=== PATIENT | female | born 1960 | race African-American/Black ===

== ENCOUNTER 2022-10-27 22:49 | Inpatient (IN) | payer OTHER, MEDICAID ==
[~2022-10-27] VITALS: Ht 172.7 cm; Wt 60.5 kg
[2022-10-27] MEDS ORDERED: SODIUM CHLORIDE 0.9% 1000ML BAG (SEPSIS BOLUS) IV ONE (23:15)
[2022-10-28] MEDS ORDERED: CEFTRIAXONE 1GM PREMIX 50 ML IV ONE (00:15)
[2022-10-28] MEDS ORDERED: AZITHROMYCIN 500MG/250ML 250 ML IV ONE (00:15)
[2022-10-28 01:09] LABS: CLARITY URINE CLEAR (CLEAR); COLOR URINE DARK YELLOW (YELLOW); GLUCOSE URINE NEGATIVE (NEGATIVE); KETONES URINE TRACE (NEGATIVE); LEUKOCYTE ESTERASE URINE 2+ (NEGATIVE); NITRITE URINE NEGATIVE (NEGATIVE); OCCULT BLOOD URINE 1+ (NEGATIVE); PH URINE 5.5 (4.5-8.0); PROTEIN URINE 2+ (NEGATIVE); SPECIFIC GRAVITY URINE 1.034 (1.005-1.030)
[2022-10-28 01:28] LABS: BACTERIA URINE 1+; SQUAMOUS EPITHELIAL CELL URINE 1+ /lpf (RARE/1+)
[2022-10-28] MEDS ORDERED: AZITHROMYCIN 500MG/250ML 250 ML IV NR (03:00)
[2022-10-28] MEDS ORDERED: CEFTRIAXONE 1GM PREMIX 50 ML IV NR (03:00)
[2022-10-28 03:13] LABS: HEMATOCRIT. 36.2 % (36.0-48.0); HEMOGLOBIN. 12.4 g/dL (12.0-16.0); MEAN CORPUSCULAR HEMOGLOBIN 28.4 pg (28.0-32.0); MEAN CORPUSCULAR HGB CONC 34.2 g/dL (31.0-37.0); MEAN PLATELET VOLUME 7.9 fl (7.4-10.4); PLATELET 358 x1000/uL (130-400); RED BLOOD CELL COUNT 4.36 mill/uL (4.2-5.4); RED CELL DISTRIBUTION WIDTH 13.7 % (11.6-14.6)
[2022-10-28 03:18] LABS: CHLORIDE 111 mEq/L (98-107); INDEX HEMOLYSI 1 (1-3); INDEX ICTERIC 1 (1-4); INDEX LIPEMIC 1 (1-3); POTASSIUM 3.9 mEq/L (3.5-5.1); SODIUM 142 mEq/L (136-145)
[2022-10-28 03:20] LABS: PROTHROMBIN TIME 11.1 sec (9.6-11.0)
[2022-10-28 03:22] LABS: DIFFERENTIAL COMMENT 1
[2022-10-28 03:27] LABS: ALANINE AMINOTRANSFERASE 45 IU/L (13-61); ALBUMIN 2.5 g/dL (3.4-5.0); ASPARTATE AMINOTRANSFERASE 116 IU/L (15-37); BILIRUBIN TOTAL 0.5 mg/dL (0.1-1.0); CALCIUM 9.7 mg/dL (8.5-10.1); CARBON DIOXIDE 27 mEq/L (21-32); CREATININE 0.9 mg/dL (0.6-1.3); GLUCOSE 114 mg/dL (70-105); LACTATE DEHYDROGENASE 355 IU/L (100-240); NT PRO B-TYPE NATRIURETIC PEP 988 pg/mL (5-125); PROTEIN TOTAL 7.4 g/dL (6.0-8.3); UREA NITROGEN BLOOD 37 mg/dL (7-21)
[2022-10-28 03:49] LABS: PLATELET ESTIMATE NORMAL
[2022-10-28 04:28] LABS: LACTIC ACID 2.9 mmol/L (0.4-2.0); TROPONIN I HIGH SENSITIVITY 189 ng/L (<54)
[2022-10-28 11:20] VITALS: BP 100/46; PULSE 49; RESP 18; TEMP 99
[2022-10-28 11:30] VITALS: BP 100/46; PULSE 83; RESP 18; TEMP 99
[2022-10-28] MEDS ORDERED: CLONIDINE 0.1MG TABLET PO PRN (13:15)
[2022-10-28] MEDS ORDERED: HYDROCODONE/ACETAMINOPHEN 5/325MG TABLET PO PRN (13:15)
[2022-10-28] MEDS ORDERED: DOCUSATE SODIUM 100MG CAPSULE PO PRN (13:15)
[2022-10-28] MEDS ORDERED: ONDANSETRON HCL 4MG/2ML INJ IV PRN (13:15)
[2022-10-28] MEDS ORDERED: ACETAMINOPHEN 325MG TABLET PO PRN (13:15)
[2022-10-28] MEDS ORDERED: IPRATROPIUM/ALBUTEROL 0.5-3(2.5)MG/3ML NEB HHN PRN (13:15)
[2022-10-28] MEDS ORDERED: NALOXONE HCL 0.4MG/ML VIAL IV PRN (13:30)
[2022-10-28 14:00] VITALS: BP 94/51; PULSE 71; RESP 19; TEMP 98.5
[2022-10-28 16:00] VITALS: BP 95/55; PULSE 78; RESP 19; TEMP 98.6
[2022-10-28 18:27] LABS: TROPONIN I HIGH SENSITIVITY 171 ng/L (<54)
[2022-10-28 20:00] VITALS: BP 104/61; PULSE 68; RESP 18; TEMP 97.3
[2022-10-28 20:12] LABS: BG BASE EXCESS 3.8 mmol/L (-2.0-2.0); BG CARBOXYHEMOGLOBIN 0.3 % (0.5-1.5); BG DEOXYHEMOGLOBIN 1.9 % (0.0-5.0); BG FRACTION INSPIRED OXYGEN 28; BG HCO3 ACT 27.5 mmol/L (22.0-26.0); BG METHEMOGLOBIN 0.3 % (0.0-1.5); BG OXYGEN SATURATION 98.1 % (92.0-98.5); BG OXYHEMOGLOBIN 97.5 % (94.0-97.0); BG PCO2 37.8 mmHg (35.0-45.0); BG PH 7.479 (7.350-7.450); BG PO2 137.9 mmHg (75.0-100.0); BG SAMPLE SITE RIGHT BRACHIAL; BG TOTAL HEMOGLOBIN 11.1 g/dL (12.0-18.0); BG VENT MODE NASAL CANNULA
[2022-10-28] MEDS: DEXT 5%/0.9% NACL 1,000 ML IV SCH (21:51)
[2022-10-28] MEDS: CEFTRIAXONE 1,000 MG in DEXTROSE 5% WATER 50 ML IV SCH (21:52)
[2022-10-28 22:27] LABS: TROPONIN I HIGH SENSITIVITY 164 ng/L (<54)
[2022-10-28 23:14] LABS: PHOSPHORUS 3.3 mg/dL (2.5-4.9); THYROID STIMULATING HORMONE 1.6 uIU/mL (0.36-3.74)
[2022-10-29] VITALS: BP 110/51; PULSE 79; RESP 19; TEMP 98
[2022-10-29 04:00] VITALS: BP 97/62; PULSE 73; RESP 19; TEMP 96.9
[2022-10-29 07:32] LABS: CHLORIDE 115 mEq/L (98-107); INDEX HEMOLYSI 1 (1-3); INDEX ICTERIC 1 (1-4); INDEX LIPEMIC 1 (1-3); POTASSIUM 3.6 mEq/L (3.5-5.1); SODIUM 143 mEq/L (136-145)
[2022-10-29 07:45] LABS: ALANINE AMINOTRANSFERASE 39 IU/L (13-61); ASPARTATE AMINOTRANSFERASE 78 IU/L (15-37); BILIRUBIN DIRECT 0.1 mg/dL (0.0-0.2); BILIRUBIN TOTAL 0.4 mg/dL (0.1-1.0); CALCIUM 9.5 mg/dL (8.5-10.1); CARBON DIOXIDE 24 mEq/L (21-32); CREATININE 0.7 mg/dL (0.6-1.3); GLUCOSE 97 mg/dL (70-105); PROTEIN TOTAL 6.4 g/dL (6.0-8.3); UREA NITROGEN BLOOD 32 mg/dL (7-21)
[2022-10-29 08:16] LABS: BASOPHILS % 0.1 % (0.0-2.0); EOSINOPHILS % 0.5 % (0.0-5.0); HEMATOCRIT. 30.3 % (36.0-48.0); LYMPHOCYTES % 9.1 % (20.0-50.0); MEAN CORPUSCULAR HEMOGLOBIN 28.7 pg (28.0-32.0); MEAN CORPUSCULAR HGB CONC 34.5 g/dL (31.0-37.0); MEAN CORPUSCULAR VOLUME 83.2 fL (81.0-99.0); MEAN PLATELET VOLUME 8.2 fl (7.4-10.4); MONOCYTES % 3.5 % (2.0-8.0); NEUTROPHILS % 86.8 % (40.0-76.0); PLATELET 314 x1000/uL (130-400); RED BLOOD CELL COUNT 3.64 mill/uL (4.2-5.4); RED CELL DISTRIBUTION WIDTH 13.7 % (11.6-14.6); WHITE BLOOD COUNT 13.9 x1000/uL (4.5-11.0)
[2022-10-29 08:20] VITALS: BP 104/62; PULSE 71; RESP 20; TEMP 98.3
[2022-10-29 08:32] LABS: HEMOGLOBIN. 10.4 g/dL (12.0-16.0)
[2022-10-29 09:02] LABS: *AMPHETAMINES SCREEN URINE NEGATIVE (NEGATIVE); *BARBITURATES SCREEN URINE NEGATIVE (NEGATIVE); *BENZODIAZEPINES SCREEN URINE NEGATIVE (NEGATIVE); *COCAINE SCREEN URINE NEGATIVE (NEGATIVE); CANNABINOID URINE SCREEN NEGATIVE (NEGATIVE); ECSTASY MDMA SCREEN URINE NEGATIVE (NEGATIVE); METHADONE URINE SCREEN NEGATIVE (NEGATIVE); OPIATES URINE SCREEN NEGATIVE (NEGATIVE); PHENCYCLIDINE URINE SCREEN NEGATIVE (NEGATIVE)
[2022-10-29] MEDS ORDERED: LIDOCAINE 2%/EPINEPHRINE 1:200,000 20 ML VIAL INJ NR (11:00)
[2022-10-29 11:42] VITALS: BP 104/69; PULSE 85; RESP 20; TEMP 97.9
[2022-10-29] MEDS ORDERED: PERMETHRIN 5% CREAM 60GM TOP NR (12:30)
[2022-10-29] MEDS ORDERED: VANCOMYCIN 1G PREMIX 200 ML IV NR (13:30)
[2022-10-29] MEDS: DEXT 5%/0.9% NACL 1,000 ML IV SCH (14:16)
[2022-10-29 16:19] VITALS: BP 113/72; PULSE 71; RESP 20; TEMP 98.3
[2022-10-29 20:00] VITALS: BP 103/57; PULSE 79; RESP 18; TEMP 99
[2022-10-29] MEDS: CEFTRIAXONE 1,000 MG in DEXTROSE 5% WATER 50 ML IV SCH (21:47)
[2022-10-30] VITALS: BP 96/47; PULSE 66; RESP 18; TEMP 98.4
[2022-10-30 04:00] VITALS: BP 107/51; PULSE 72; RESP 18; TEMP 98.2
[2022-10-30 06:56] LABS: BASOPHILS % 0.2 % (0.0-2.0); EOSINOPHILS % 0.9 % (0.0-5.0); HEMATOCRIT. 28.5 % (36.0-48.0); LYMPHOCYTES % 11.8 % (20.0-50.0); MEAN CORPUSCULAR HEMOGLOBIN 29.3 pg (28.0-32.0); MEAN CORPUSCULAR HGB CONC 35.3 g/dL (31.0-37.0); MEAN CORPUSCULAR VOLUME 83.1 fL (81.0-99.0); MEAN PLATELET VOLUME 8.2 fl (7.4-10.4); MONOCYTES % 4.3 % (2.0-8.0); NEUTROPHILS % 82.8 % (40.0-76.0); PLATELET 281 x1000/uL (130-400); RED BLOOD CELL COUNT 3.43 mill/uL (4.2-5.4); RED CELL DISTRIBUTION WIDTH 13.6 % (11.6-14.6); WHITE BLOOD COUNT 10.1 x1000/uL (4.5-11.0)
[2022-10-30 07:01] LABS: CHLORIDE 115 mEq/L (98-107); INDEX HEMOLYSI 1 (1-3); INDEX ICTERIC 1 (1-4); INDEX LIPEMIC 1 (1-3); POTASSIUM 3.9 mEq/L (3.5-5.1); SODIUM 145 mEq/L (136-145)
[2022-10-30 07:13] LABS: ALBUMIN 1.9 g/dL (3.4-5.0); CALCIUM 9.2 mg/dL (8.5-10.1); CARBON DIOXIDE 28 mEq/L (21-32); CREATININE 0.8 mg/dL (0.6-1.3); GLUCOSE 106 mg/dL (70-105); PREALBUMIN 7.6 mg/dL (20.0-40.0); UREA NITROGEN BLOOD 25 mg/dL (7-21)
[2022-10-30 08:01] VITALS: BP 91/52; PULSE 69; RESP 20; TEMP 97.4
[2022-10-30] MEDS: DEXT 5%/0.9% NACL 1,000 ML IV SCH (08:25)
[2022-10-30] MEDS: SODIUM HYPOCHLORITE 0.125% 473ML SOLUTION TOP SCH ×2 (11:18→17:20)
[2022-10-30 12:04] VITALS: BP 97/54; PULSE 77; RESP 18; TEMP 98
[2022-10-30] MEDS: VANCOMYCIN 750MG PREMIX 150 ML IV SCH ×2 (12:30)
[2022-10-30 15:42] VITALS: BP 114/71; PULSE 86; RESP 20; TEMP 97.5
[2022-10-30 20:00] VITALS: BP 113/66; PULSE 84; RESP 18; TEMP 99.1
[2022-10-30] MEDS: CEFTRIAXONE 1,000 MG in DEXTROSE 5% WATER 50 ML IV SCH (20:50)
[2022-10-31] VITALS: BP 123/84; PULSE 83; RESP 18; TEMP 98.4
[2022-10-31] MEDS: VANCOMYCIN 750MG PREMIX 150 ML IV SCH ×2 (01:44→12:18)
[2022-10-31 04:00] VITALS: BP 105/59; PULSE 71; RESP 18; TEMP 98.5
[2022-10-31 08:00] VITALS: BP 97/61; PULSE 72; RESP 17; TEMP 97.5
[2022-10-31 11:11] LABS: BASOPHILS % 0.5 % (0.0-2.0); EOSINOPHILS % 1.9 % (0.0-5.0); HEMOGLOBIN. 9.8 g/dL (12.0-16.0); LYMPHOCYTES % 19.5 % (20.0-50.0); MEAN CORPUSCULAR HEMOGLOBIN 29.2 pg (28.0-32.0); MEAN CORPUSCULAR VOLUME 83.4 fL (81.0-99.0); MEAN PLATELET VOLUME 7.9 fl (7.4-10.4); MONOCYTES % 3.9 % (2.0-8.0); NEUTROPHILS % 74.2 % (40.0-76.0); PLATELET 270 x1000/uL (130-400); RED BLOOD CELL COUNT 3.35 mill/uL (4.2-5.4); RED CELL DISTRIBUTION WIDTH 13.5 % (11.6-14.6); WHITE BLOOD COUNT 6.9 x1000/uL (4.5-11.0)
[2022-10-31 12:00] VITALS: BP 108/53; PULSE 79; RESP 17; TEMP 98
[2022-10-31 12:09] LABS: CHLORIDE 111 mEq/L (98-107); INDEX HEMOLYSI 2 (1-3); INDEX ICTERIC 1 (1-4); INDEX LIPEMIC 1 (1-3); POTASSIUM 3.7 mEq/L (3.5-5.1); SODIUM 141 mEq/L (136-145)
[2022-10-31 12:16] LABS: CALCIUM 8.5 mg/dL (8.5-10.1); CARBON DIOXIDE 26 mEq/L (21-32); CREATININE 0.5 mg/dL (0.6-1.3); GLUCOSE 146 mg/dL (70-105); UREA NITROGEN BLOOD 20 mg/dL (7-21)
[2022-10-31] MEDS: SODIUM HYPOCHLORITE 0.125% 473ML SOLUTION TOP SCH ×2 (12:18→17:12)
[2022-10-31 16:00] VITALS: BP 100/66; PULSE 76; RESP 17; TEMP 97.6
[2022-10-31 20:00] VITALS: BP 139/84; PULSE 89; RESP 18; TEMP 98.4
[2022-10-31] MEDS: CEFTRIAXONE 1,000 MG in DEXTROSE 5% WATER 50 ML IV SCH (21:25)
[2022-11-01] VITALS: BP 106/66; PULSE 80; RESP 16; TEMP 98
[2022-11-01 04:00] VITALS: BP_SYST 126; BP_SYST 131; BP_DIAS 76; BP_DIAS 97; PULSE 58; PULSE 75; RESP 17; RESP 19; TEMP 97.3; TEMP 97.9
[2022-11-01] MEDS: DEXT 5%/0.9% NACL 1,000 ML IV SCH (04:55)
[2022-11-01 08:00] VITALS: BP 110/66; PULSE 63; RESP 16; TEMP 97.4
[2022-11-01] MEDS: SODIUM HYPOCHLORITE 0.125% 473ML SOLUTION TOP SCH ×2 (09:43→16:51)
[2022-11-01 12:00] VITALS: BP 122/63; PULSE 66; RESP 17; TEMP 97
[2022-11-01 16:00] VITALS: BP 124/74; PULSE 65; RESP 18; TEMP 97.4
[2022-11-01] MEDS: ACETAMINOPHEN 325MG TABLET PO PRN (16:57)
[2022-11-01 20:00] VITALS: BP 104/77; PULSE 84; RESP 17; TEMP 98.1
[2022-11-01] MEDS: CEFTRIAXONE 1,000 MG in DEXTROSE 5% WATER 50 ML IV SCH (21:37)
[2022-11-02] VITALS: BP 106/65; PULSE 73; RESP 17; TEMP 98.8
[2022-11-02 04:00] VITALS: BP_SYST 125; BP_DIAS 64; BP_DIAS 65; PULSE 66; RESP 18; TEMP 97.1
[2022-11-02 08:00] VITALS: BP 104/89; PULSE 68; RESP 18; TEMP 96.2
[2022-11-02] MEDS: DONEPEZIL HCL 5MG TABLET PO SCH (08:31)
[2022-11-02] MEDS: SODIUM HYPOCHLORITE 0.125% 473ML SOLUTION TOP SCH ×2 (08:31→17:00)
[2022-11-02] MEDS: DEXT 5%/0.9% NACL 1,000 ML IV SCH (10:05)
[2022-11-02 12:00] VITALS: BP 105/64; PULSE 72; RESP 18; TEMP 97.6
[2022-11-02 16:00] VITALS: BP 113/82; PULSE 82; RESP 18; TEMP 96.4
[2022-11-02 20:00] VITALS: BP 102/70; PULSE 95; RESP 18; TEMP 97.6
[2022-11-02] MEDS: CARVEDILOL 3.125 MG TABLET PO SCH (21:00)
[2022-11-02] MEDS: CEFTRIAXONE 1,000 MG in DEXTROSE 5% WATER 50 ML IV SCH (21:55)
[2022-11-03] VITALS: BP 120/80; PULSE 83; RESP 19; TEMP 99.2
[2022-11-03 04:00] VITALS: BP 103/55; PULSE 72; RESP 19; TEMP 97.9
[2022-11-03 07:17] LABS: CHLORIDE 106 mEq/L (98-107); INDEX HEMOLYSI 1 (1-3); INDEX ICTERIC 1 (1-4); INDEX LIPEMIC 1 (1-3); SODIUM 138 mEq/L (136-145)
[2022-11-03 07:22] LABS: CALCIUM 8.7 mg/dL (8.5-10.1); CARBON DIOXIDE 28 mEq/L (21-32); CREATININE 0.7 mg/dL (0.6-1.3); GLUCOSE 90 mg/dL (70-105); UREA NITROGEN BLOOD 13 mg/dL (7-21)
[2022-11-03 07:24] LABS: BASOPHILS % 0.6 % (0.0-2.0); EOSINOPHILS % 1.7 % (0.0-5.0); HEMATOCRIT. 27.8 % (36.0-48.0); HEMOGLOBIN. 9.9 g/dL (12.0-16.0); LYMPHOCYTES % 20.3 % (20.0-50.0); MEAN CORPUSCULAR HEMOGLOBIN 29.1 pg (28.0-32.0); MEAN CORPUSCULAR HGB CONC 35.5 g/dL (31.0-37.0); MEAN CORPUSCULAR VOLUME 82.1 fL (81.0-99.0); MEAN PLATELET VOLUME 7.6 fl (7.4-10.4); MONOCYTES % 6.9 % (2.0-8.0); NEUTROPHILS % 70.5 % (40.0-76.0); PLATELET 296 x1000/uL (130-400); RED BLOOD CELL COUNT 3.39 mill/uL (4.2-5.4); RED CELL DISTRIBUTION WIDTH 13.5 % (11.6-14.6); WHITE BLOOD COUNT 6.8 x1000/uL (4.5-11.0)
[2022-11-03 08:06] VITALS: BP 108/69; PULSE 76; RESP 20; TEMP 97.7
[2022-11-03] MEDS: CARVEDILOL 3.125 MG TABLET PO SCH ×2 (08:28→21:00)
[2022-11-03] MEDS: LOSARTAN POTASSIUM 25 MG TABLET PO SCH (08:28)
[2022-11-03] MEDS: SODIUM HYPOCHLORITE 0.125% 473ML SOLUTION TOP SCH ×2 (08:29→16:08)
[2022-11-03] MEDS: DONEPEZIL HCL 5MG TABLET PO SCH (08:29)
[2022-11-03 11:58] VITALS: BP 95/58; PULSE 77; RESP 18; TEMP 97.9
[2022-11-03 16:35] VITALS: BP 93/53; PULSE 75; RESP 20; TEMP 98
[2022-11-03 20:00] VITALS: BP 103/65; PULSE 84; RESP 16; TEMP 98.2
[2022-11-03] MEDS: CEFTRIAXONE 1,000 MG in DEXTROSE 5% WATER 50 ML IV SCH (21:50)
[2022-11-04] VITALS: BP 97/67; PULSE 86; RESP 18; TEMP 98.3
[2022-11-04 04:00] VITALS: BP 117/87; PULSE 94; TEMP 98.2
[2022-11-04 08:00] VITALS: BP 111/58; PULSE 74; RESP 16; TEMP 97.5
[2022-11-04] MEDS: SODIUM HYPOCHLORITE 0.125% 473ML SOLUTION TOP SCH ×2 (09:00→18:04)
[2022-11-04] MEDS: LOSARTAN POTASSIUM 25 MG TABLET PO SCH (10:30)
[2022-11-04] MEDS: DONEPEZIL HCL 5MG TABLET PO SCH (10:30)
[2022-11-04] MEDS: CARVEDILOL 3.125 MG TABLET PO SCH ×2 (10:30→21:17)
[2022-11-04 12:00] VITALS: BP 92/57; PULSE 81; RESP 18; TEMP 97.5
[2022-11-04 16:00] VITALS: BP 94/56; PULSE 87; RESP 18; TEMP 97.7
[2022-11-04 20:00] VITALS: BP 89/54; PULSE 96; RESP 20; TEMP 97.9
[2022-11-05] VITALS: BP 95/64; PULSE 78; RESP 20; TEMP 98.1
[2022-11-05 04:00] VITALS: BP 86/50; PULSE 76; RESP 19; TEMP 97.5
[2022-11-05 08:00] VITALS: BP 116/62; PULSE 73; RESP 18; TEMP 97.6
[2022-11-05] MEDS ORDERED: CEFTRIAXONE 1GM PREMIX 50 ML IV SCH (09:00)
[2022-11-05] MEDS: SODIUM HYPOCHLORITE 0.125% 473ML SOLUTION TOP SCH ×2 (09:44→17:22)
[2022-11-05] MEDS: DONEPEZIL HCL 5MG TABLET PO SCH (09:44)
[2022-11-05] MEDS: CEFTRIAXONE 1,000 MG in DEXTROSE 5% WATER 50 ML IV SCH (09:49)
[2022-11-05 12:00] VITALS: BP 94/56; PULSE 83; RESP 16; TEMP 97.5
[2022-11-05 16:00] VITALS: BP 90/55; PULSE 86; RESP 16; TEMP 97.6
[2022-11-05 20:15] VITALS: BP 93/48; PULSE 104; RESP 20; TEMP 99
[2022-11-05] MEDS ORDERED: DONE10TA43 MT (21:43)
[2022-11-05] MEDS ORDERED: HYDR12.54 MT (21:43)
[2022-11-05] MEDS ORDERED: CHOL400D7 PO (21:43)
[2022-11-06 00:30] VITALS: BP 94/56; PULSE 89; RESP 20; TEMP 98.1
[2022-11-06 04:27] VITALS: BP 98/60; PULSE 90; RESP 20; TEMP 97.5
[2022-11-06 08:00] VITALS: BP 108/69; PULSE 98; RESP 18; TEMP 98
[2022-11-06] MEDS: SODIUM HYPOCHLORITE 0.125% 473ML SOLUTION TOP SCH ×2 (09:09→18:00)
[2022-11-06] MEDS: DONEPEZIL HCL 5MG TABLET PO SCH (09:09)
[2022-11-06] MEDS: CEFTRIAXONE 1,000 MG in DEXTROSE 5% WATER 50 ML IV SCH (10:15)
[2022-11-06 12:00] VITALS: BP 110/72; PULSE 87; RESP 18; TEMP 97.7
[2022-11-06 16:00] VITALS: BP 115/68; PULSE 75; RESP 18; TEMP 97.8
[2022-11-06 20:00] VITALS: BP 99/74; PULSE 87; RESP 20; TEMP 100.2
[2022-11-07] VITALS: BP 103/72; PULSE 86; RESP 19; TEMP 97.5
[2022-11-07 04:10] VITALS: BP 110/60; PULSE 88; RESP 20; TEMP 99.4
[2022-11-07 08:00] VITALS: BP 113/57; PULSE 79; RESP 20; TEMP 97.8
[2022-11-07] MEDS: CEFTRIAXONE 1,000 MG in DEXTROSE 5% WATER 50 ML IV SCH (10:17)
[2022-11-07] MEDS: DONEPEZIL HCL 5MG TABLET PO SCH (10:17)
[2022-11-07] MEDS: SODIUM HYPOCHLORITE 0.125% 473ML SOLUTION TOP SCH ×2 (10:18→17:50)
[2022-11-07 12:00] VITALS: BP 122/87; PULSE 105; RESP 20; TEMP 98.8
[2022-11-07 16:00] VITALS: BP 136/85; PULSE 109; RESP 18; TEMP 98
[2022-11-07 20:00] VITALS: BP 132/79; PULSE 79; RESP 20; TEMP 98.6
[2022-11-08] VITALS: BP 126/85; PULSE 115; RESP 20; TEMP 98
[2022-11-08 04:00] VITALS: BP 121/82; PULSE 114; RESP 21; TEMP 98.6
[2022-11-08 08:00] VITALS: BP 117/76; PULSE 102; RESP 18; TEMP 98.9
[2022-11-08] MEDS: SODIUM HYPOCHLORITE 0.125% 473ML SOLUTION TOP SCH ×2 (09:25→17:00)
[2022-11-08] MEDS: DONEPEZIL HCL 5MG TABLET PO SCH (09:25)
[2022-11-08] MEDS: CEFTRIAXONE 1,000 MG in DEXTROSE 5% WATER 50 ML IV SCH (09:53)
[2022-11-08 12:00] VITALS: BP 107/70; PULSE 98; RESP 20; TEMP 97.7
[2022-11-08 16:00] VITALS: BP 110/57; PULSE 96; RESP 18; TEMP 98
[2022-11-08 20:00] VITALS: BP 100/62; PULSE 104; RESP 18; TEMP 100.3
[2022-11-09] VITALS (17 sets, daily range): BP systolic 73–108; BP diastolic 39–69; PULSE 42–93; RESP 15–20; TEMP 97.7–98.9
[2022-11-09] MEDS ORDERED: SODIUM CHLORIDE 0.9% 500 ML IV NR ×2 (02:45)
[2022-11-09] MEDS: MIDODRINE HCL 5MG TABLET PO SCH ×4 (03:10→18:05)
[2022-11-09] MEDS: DONEPEZIL HCL 5MG TABLET PO SCH (09:00)
[2022-11-09] MEDS ORDERED: NOREPINEPHRINE 32 MG in DEXT 5% WATER 218 ML IV PRN (10:15)
[2022-11-09] MEDS: SODIUM CHLORIDE 0.9% 1,000 ML IV SCH ×2 (10:29→21:34)
[2022-11-09] MEDS: SODIUM HYPOCHLORITE 0.125% 473ML SOLUTION TOP SCH ×2 (10:30→18:06)
[2022-11-09 12:52] LABS: HEMATOCRIT 27.2 % (36.0-48.0); HEMOGLOBIN 9.9 g/dL (12.0-16.0); MEAN CORPUSCULAR HEMOGLOBIN 30.4 pg (28.0-32.0); MEAN CORPUSCULAR HGB CONC 36.5 g/dL (31.0-37.0); MEAN CORPUSCULAR VOLUME 83.4 fL (81.0-99.0); PLATELET 429 x1000/uL (130-400); RED BLOOD CELL COUNT 3.26 mill/uL (4.2-5.4); WHITE BLOOD COUNT 8.2 x1000/uL (4.5-11.0)
[2022-11-09 13:05] LABS: CHLORIDE 106 mEq/L (98-107); INDEX HEMOLYSI 1 (1-3); INDEX ICTERIC 1 (1-4); INDEX LIPEMIC 1 (1-3); POTASSIUM 4.5 mEq/L (3.5-5.1); SODIUM 137 mEq/L (136-145)
[2022-11-09 13:16] LABS: ALANINE AMINOTRANSFERASE 24 IU/L (13-61); ALBUMIN 1.9 g/dL (3.4-5.0); ASPARTATE AMINOTRANSFERASE 31 IU/L (15-37); BILIRUBIN TOTAL 0.2 mg/dL (0.1-1.0); CALCIUM 8.6 mg/dL (8.5-10.1); CARBON DIOXIDE 29 mEq/L (21-32); CREATININE 0.8 mg/dL (0.6-1.3); GLUCOSE 100 mg/dL (70-105); UREA NITROGEN BLOOD 18 mg/dL (7-21)
[2022-11-09 13:44] LABS: TROPONIN I HIGH SENSITIVITY 181 ng/L (<54)
[2022-11-10] VITALS: BP 98/58; PULSE 66; RESP 18; TEMP 97.5
[2022-11-10 04:00] VITALS: BP 97/46; PULSE 61; RESP 18; TEMP 98.2
[2022-11-10] MEDS: SODIUM CHLORIDE 0.9% 1,000 ML IV SCH ×2 (06:39→15:19)
[2022-11-10 07:36] LABS: EOSINOPHILS % 2.1 % (0.0-5.0); HEMATOCRIT. 27.3 % (36.0-48.0); HEMOGLOBIN. 9.5 g/dL (12.0-16.0); LYMPHOCYTES % 20.9 % (20.0-50.0); MEAN CORPUSCULAR HEMOGLOBIN 28.9 pg (28.0-32.0); MEAN CORPUSCULAR HGB CONC 34.8 g/dL (31.0-37.0); MEAN PLATELET VOLUME 6.9 fl (7.4-10.4); MONOCYTES % 6.2 % (2.0-8.0); NEUTROPHILS % 69.8 % (40.0-76.0); PLATELET 418 x1000/uL (130-400); RED CELL DISTRIBUTION WIDTH 14.2 % (11.6-14.6); WHITE BLOOD COUNT 6.8 x1000/uL (4.5-11.0)
[2022-11-10 07:52] LABS: CHLORIDE 106 mEq/L (98-107); INDEX HEMOLYSI 1 (1-3); INDEX ICTERIC 1 (1-4); INDEX LIPEMIC 1 (1-3); POTASSIUM 4.2 mEq/L (3.5-5.1); SODIUM 137 mEq/L (136-145)
[2022-11-10 08:08] LABS: CARBON DIOXIDE 27 mEq/L (21-32); CREATININE 0.6 mg/dL (0.6-1.3); GLUCOSE 83 mg/dL (70-105); NT PRO B-TYPE NATRIURETIC PEP 512 pg/mL (5-125); UREA NITROGEN BLOOD 17 mg/dL (7-21)
[2022-11-10] MEDS: DONEPEZIL HCL 5MG TABLET PO SCH (09:26)
[2022-11-10] MEDS: MIDODRINE HCL 5MG TABLET PO SCH ×3 (09:26→17:59)
[2022-11-10] MEDS: SODIUM HYPOCHLORITE 0.125% 473ML SOLUTION TOP SCH ×2 (09:26→17:58)
[2022-11-10] MEDS: CEFTRIAXONE 1,000 MG in DEXTROSE 5% WATER 50 ML IV SCH (10:44)
[2022-11-10 12:00] VITALS: BP_SYST 92; BP_SYST 97; BP_DIAS 49; BP_DIAS 53; PULSE 58; PULSE 62; RESP 20; TEMP 97.5; TEMP 98
[2022-11-10 16:00] VITALS: BP 97/67; PULSE 71; RESP 20; TEMP 99
[2022-11-10 20:00] VITALS: BP 123/78; PULSE 52; RESP 18; TEMP 98
[2022-11-11] VITALS: BP 143/81; PULSE 85; RESP 20; TEMP 98.4
[2022-11-11] MEDS: SODIUM CHLORIDE 0.9% 1,000 ML IV SCH ×3 (01:15→21:36)
[2022-11-11 04:00] VITALS: BP 97/53; PULSE 86; RESP 20; TEMP 98.6
[2022-11-11 08:00] VITALS: BP 118/64; PULSE 69; RESP 20; TEMP 98.4
[2022-11-11] MEDS: SODIUM HYPOCHLORITE 0.125% 473ML SOLUTION TOP SCH ×2 (08:56→17:51)
[2022-11-11] MEDS: DONEPEZIL HCL 5MG TABLET PO SCH (08:56)
[2022-11-11] MEDS: MIDODRINE HCL 5MG TABLET PO SCH ×3 (08:56→17:51)
[2022-11-11 12:00] VITALS: BP 135/75; PULSE 74; RESP 20; TEMP 97.2
[2022-11-11 16:00] VITALS: BP 117/67; PULSE 72; RESP 18; TEMP 97.4
[2022-11-11 20:42] VITALS: BP 96/56; PULSE 88; RESP 20; TEMP 100
[2022-11-12 00:09] VITALS: BP 111/66; PULSE 77; RESP 19; TEMP 98.8
[2022-11-12 04:00] VITALS: BP 106/54; PULSE 65; RESP 19; TEMP 98.6
[2022-11-12] MEDS: SODIUM CHLORIDE 0.9% 1,000 ML IV SCH (06:44)
[2022-11-12 08:13] VITALS: BP 98/48; PULSE 67; RESP 18; TEMP 97.9
[2022-11-12] MEDS: SODIUM HYPOCHLORITE 0.125% 473ML SOLUTION TOP SCH ×2 (09:20→17:17)
[2022-11-12] MEDS: MIDODRINE HCL 5MG TABLET PO SCH ×3 (09:21→17:16)
[2022-11-12] MEDS: DONEPEZIL HCL 5MG TABLET PO SCH (09:21)
[2022-11-12 12:22] VITALS: BP 111/69; PULSE 83; RESP 18; TEMP 98
[2022-11-12 16:20] VITALS: BP 112/65; PULSE 63; RESP 18; TEMP 97.9
[2022-11-12 20:00] VITALS: BP 121/73; PULSE 74; RESP 18; TEMP 99
[2022-11-13] VITALS: BP 114/63; PULSE 71; RESP 18; TEMP 98.6
[2022-11-13 04:00] VITALS: BP 117/75; PULSE 80; RESP 18; TEMP 98.8
[2022-11-13 08:00] VITALS: BP 121/66; PULSE 69; RESP 18; TEMP 97.6
[2022-11-13] MEDS: SODIUM HYPOCHLORITE 0.125% 473ML SOLUTION TOP SCH ×2 (09:00→17:00)
[2022-11-13] MEDS: MIDODRINE HCL 5MG TABLET PO SCH ×3 (09:00→17:00)
[2022-11-13] MEDS: DONEPEZIL HCL 5MG TABLET PO SCH (10:02)
[2022-11-13 12:00] VITALS: BP 112/65; PULSE 79; RESP 20; TEMP 97.7
[2022-11-13 15:59] VITALS: BP 139/87; PULSE 79; RESP 18; TEMP 98.2
[2022-11-13 20:00] VITALS: BP 107/61; PULSE 69; RESP 16; TEMP 98.1
[2022-11-14] VITALS: BP 100/49; PULSE 75; RESP 14; TEMP 97.7
[2022-11-14 04:00] VITALS: BP 117/69; PULSE 69; RESP 15; TEMP 97.7
[2022-11-14 08:00] VITALS: BP 105/63; PULSE 75; RESP 17; TEMP 98.1
[2022-11-14] MEDS: DONEPEZIL HCL 5MG TABLET PO SCH (08:20)
[2022-11-14] MEDS: MIDODRINE HCL 5MG TABLET PO SCH ×3 (08:21→16:44)
[2022-11-14] MEDS: SODIUM HYPOCHLORITE 0.125% 473ML SOLUTION TOP SCH ×2 (09:00→17:00)
[2022-11-14 12:00] VITALS: BP 115/64; PULSE 82; RESP 19; TEMP 97.7
[2022-11-14 16:00] VITALS: BP 120/64; PULSE 80; RESP 19; TEMP 98.1
[2022-11-14] MEDS: ACETAMINOPHEN 325MG TABLET PO PRN (17:32)
[2022-11-14 20:00] VITALS: BP 111/77; PULSE 82; RESP 17; TEMP 97.9
[2022-11-15] VITALS: BP 105/80; PULSE 79; RESP 14; TEMP 97.7
[2022-11-15 04:00] VITALS: BP 130/80; PULSE 78; RESP 17; TEMP 98.9
[2022-11-15 08:00] VITALS: BP 88/50; PULSE 66; RESP 19; TEMP 97.5
[2022-11-15] MEDS: MIDODRINE HCL 5MG TABLET PO SCH ×3 (08:29→17:00)
[2022-11-15] MEDS: DONEPEZIL HCL 5MG TABLET PO SCH (08:29)
[2022-11-15] MEDS: SODIUM HYPOCHLORITE 0.125% 473ML SOLUTION TOP SCH (09:00)
[2022-11-15 12:00] VITALS: BP 128/80; PULSE 82; RESP 19; TEMP 97.9
[2022-11-15 16:00] VITALS: BP 91/58; PULSE 88; RESP 19; TEMP 96.1
[2022-11-15 20:00] VITALS: BP 100/66; PULSE 102; RESP 20; TEMP 99.5
[2022-11-16] VITALS: BP 104/65; PULSE 90; RESP 18; TEMP 99.1
[2022-11-16 04:00] VITALS: BP 106/61; PULSE 93; RESP 16; TEMP 99.5
[2022-11-16 08:00] VITALS: BP 105/66; PULSE 65; RESP 16; TEMP 98.1
[2022-11-16] MEDS: DONEPEZIL HCL 5MG TABLET PO SCH (09:02)
[2022-11-16] MEDS: MIDODRINE HCL 5MG TABLET PO SCH ×3 (09:02→17:00)
[2022-11-16 12:00] VITALS: BP 110/62; PULSE 89; RESP 17; TEMP 98.3
[2022-11-16 16:00] VITALS: BP 108/60; PULSE 76; RESP 16; TEMP 97.6
[2022-11-16] MEDS: SODIUM HYPOCHLORITE 0.125% 473ML SOLUTION TOP SCH (17:00)
[2022-11-16 20:00] VITALS: BP 94/52; PULSE 94; RESP 18; TEMP 98.6
[2022-11-17] VITALS: BP 107/68; PULSE 77; RESP 16; TEMP 97.7
[2022-11-17 04:00] VITALS: BP 114/55; PULSE 82; RESP 16; TEMP 97.9
[2022-11-17 08:00] VITALS: BP 108/68; PULSE 70; RESP 16; TEMP 98.3
[2022-11-17] MEDS: DONEPEZIL HCL 5MG TABLET PO SCH (08:45)
[2022-11-17] MEDS: MIDODRINE HCL 5MG TABLET PO SCH ×3 (08:45→17:00)
[2022-11-17 08:57] LABS: VITAMIN B12 SERUM 777 pg/mL (211-911)
[2022-11-17] MEDS: SODIUM HYPOCHLORITE 0.125% 473ML SOLUTION TOP SCH ×2 (09:00→17:00)
[2022-11-17 12:00] VITALS: BP 110/70; PULSE 68; RESP 15; TEMP 97.1
[2022-11-17 16:00] VITALS: BP 88/48; PULSE 91; RESP 20; TEMP 98.3
[2022-11-18] MEDS ORDERED: SODIUM CHLORIDE 0.9% 250 ML IV ONE (01:00)
[2022-11-18 08:00] VITALS: BP 116/69; PULSE 78; RESP 18; TEMP 96.3
[2022-11-18] MEDS: DONEPEZIL HCL 5MG TABLET PO SCH (09:10)
[2022-11-18] MEDS: MIDODRINE HCL 5MG TABLET PO SCH ×3 (09:10→17:25)
[2022-11-18] MEDS: SODIUM HYPOCHLORITE 0.125% 473ML SOLUTION TOP SCH ×2 (09:10→16:26)
[2022-11-18] MEDS: ACETAMINOPHEN 325MG TABLET PO PRN (14:07)
[2022-11-18 20:00] VITALS: BP 121/74; PULSE 81; RESP 18; TEMP 97.5
[2022-11-19] VITALS: BP 121/74; PULSE 83; RESP 18; TEMP 97.6
[2022-11-19 04:00] VITALS: BP 130/80; PULSE 84; RESP 19; TEMP 97.8
[2022-11-19 08:00] VITALS: BP 114/56; PULSE 92; RESP 19; TEMP 97.9
[2022-11-19] MEDS: DONEPEZIL HCL 5MG TABLET PO SCH (08:31)
[2022-11-19] MEDS: MIDODRINE HCL 5MG TABLET PO SCH ×3 (08:32→17:00)
[2022-11-19] MEDS: SODIUM HYPOCHLORITE 0.125% 473ML SOLUTION TOP SCH ×2 (08:32→17:00)
[2022-11-19 12:00] VITALS: BP 103/64; PULSE 78; RESP 19; TEMP 95.7
[2022-11-19 16:00] VITALS: BP 100/63; PULSE 90; RESP 20; TEMP 97.9
[2022-11-19 20:00] VITALS: BP 120/69; PULSE 93; RESP 18; TEMP 99.3
[2022-11-20] VITALS: BP 103/71; PULSE 85; RESP 18; TEMP 100.6
[2022-11-20 04:00] VITALS: BP 112/68; PULSE 86; RESP 18; TEMP 98.2
[2022-11-20 08:00] VITALS: BP 115/74; PULSE 77; RESP 17; TEMP 98.2
[2022-11-20] MEDS: SODIUM HYPOCHLORITE 0.125% 473ML SOLUTION TOP SCH (09:00)
[2022-11-20] MEDS: MIDODRINE HCL 5MG TABLET PO SCH ×3 (09:29→17:00)
[2022-11-20] MEDS: DONEPEZIL HCL 5MG TABLET PO SCH (09:30)
[2022-11-20 12:00] VITALS: BP 120/70; PULSE 70; RESP 16; TEMP 97.6
[2022-11-20 14:00] LABS: EOSINOPHILS % 1.6 % (0.0-5.0); HEMATOCRIT. 32.1 % (36.0-48.0); HEMOGLOBIN. 11.2 g/dL (12.0-16.0); LYMPHOCYTES % 16.4 % (20.0-50.0); MEAN CORPUSCULAR HGB CONC 34.8 g/dL (31.0-37.0); MEAN CORPUSCULAR VOLUME 83.4 fL (81.0-99.0); MONOCYTES % 9.8 % (2.0-8.0); NEUTROPHILS % 71.2 % (40.0-76.0); PLATELET 486 x1000/uL (130-400); RED BLOOD CELL COUNT 3.85 mill/uL (4.2-5.4); RED CELL DISTRIBUTION WIDTH 14.1 % (11.6-14.6); WHITE BLOOD COUNT 7.1 x1000/uL (4.5-11.0)
[2022-11-20 14:34] LABS: CHLORIDE 103 mEq/L (98-107); INDEX HEMOLYSI 1 (1-3); INDEX ICTERIC 1 (1-4); INDEX LIPEMIC 1 (1-3); POTASSIUM 4.3 mEq/L (3.5-5.1); SODIUM 137 mEq/L (136-145)
[2022-11-20 14:40] LABS: CALCIUM 9.4 mg/dL (8.5-10.1); CARBON DIOXIDE 28 mEq/L (21-32); CREATININE 0.6 mg/dL (0.6-1.3); GLUCOSE 107 mg/dL (70-105); UREA NITROGEN BLOOD 34 mg/dL (7-21)
[2022-11-20 16:00] VITALS: BP 118/71; PULSE 68; RESP 16; TEMP 98.1
[2022-11-20 20:00] VITALS: BP 98/60; PULSE 100; RESP 16; TEMP 98.9
[2022-11-21] VITALS (7 sets, daily range): BP systolic 78–120; BP diastolic 42–67; PULSE 60–98; RESP 14–20; TEMP 96.9–99.1
[2022-11-21] MEDS: SODIUM HYPOCHLORITE 0.125% 473ML SOLUTION TOP SCH ×2 (05:29→17:00)
[2022-11-21] MEDS: MIDODRINE HCL 5MG TABLET PO SCH ×3 (08:28→16:55)
[2022-11-21] MEDS: DONEPEZIL HCL 5MG TABLET PO SCH (21:00)
[2022-11-22] VITALS: BP 88/64; PULSE 84; RESP 17; TEMP 98.1
[2022-11-22 04:00] VITALS: BP 90/62; PULSE 75; RESP 18; TEMP 97.9
[2022-11-22 08:00] VITALS: BP 100/53; PULSE 87; RESP 18; TEMP 98
[2022-11-22] MEDS: MIDODRINE HCL 5MG TABLET PO SCH ×3 (08:04→16:20)
[2022-11-22] MEDS: SODIUM HYPOCHLORITE 0.125% 473ML SOLUTION TOP SCH ×2 (09:00→17:00)
[2022-11-22 12:00] VITALS: BP 119/60; PULSE 73; RESP 18; TEMP 98
[2022-11-22 16:00] VITALS: BP 90/50; PULSE 68; RESP 18; TEMP 98
[2022-11-22 20:00] VITALS: BP 123/78; PULSE 107; RESP 18; TEMP 97.7
[2022-11-22] MEDS: DONEPEZIL HCL 5MG TABLET PO SCH (20:29)
[2022-11-23] VITALS: BP 117/72; PULSE 104; RESP 17; TEMP 99.3
[2022-11-23 04:00] VITALS: BP 105/64; PULSE 105; RESP 18; TEMP 98.1
[2022-11-23 08:00] VITALS: BP 107/66; PULSE 103; RESP 18; TEMP 97.9
[2022-11-23] MEDS: MIDODRINE HCL 5MG TABLET PO SCH ×3 (08:42→17:16)
[2022-11-23 12:00] VITALS: BP 116/68; PULSE 104; RESP 19; TEMP 97.7
[2022-11-23] MEDS: SODIUM HYPOCHLORITE 0.125% 473ML SOLUTION TOP SCH (17:23)
[2022-11-23 20:00] VITALS: BP 119/79; PULSE 104; RESP 18; TEMP 98.5
[2022-11-23] MEDS: DONEPEZIL HCL 5MG TABLET PO SCH (20:35)
[2022-11-24] VITALS: BP 93/52; PULSE 80; RESP 18; TEMP 98.5
[2022-11-24 04:00] VITALS: BP 98/54; PULSE 79; RESP 20; TEMP 97.9
[2022-11-24 08:00] VITALS: BP 104/61; PULSE 80; RESP 19; TEMP 99
[2022-11-24] MEDS: MIDODRINE HCL 5MG TABLET PO SCH ×3 (08:59→17:00)
[2022-11-24] MEDS ORDERED: MORPHINE SULFATE 2 MG/ML CPJ (NOT FOR IM USE) IV NR (10:45)
[2022-11-24 12:00] VITALS: BP 87/56; PULSE 82; RESP 20; TEMP 98.4
[2022-11-24] MEDS: SODIUM HYPOCHLORITE 0.125% 473ML SOLUTION TOP SCH ×2 (12:00→17:31)
[2022-11-24 20:00] VITALS: BP 106/57; PULSE 109; RESP 20; TEMP 98.5
[2022-11-24] MEDS: DONEPEZIL HCL 5MG TABLET PO SCH (20:42)
[2022-11-25] VITALS: BP 106/66; PULSE 98; RESP 19; TEMP 98.8
[2022-11-25 04:00] VITALS: BP 105/61; PULSE 94; RESP 20; TEMP 98.2
[2022-11-25 08:00] VITALS: BP 104/65; PULSE 85; RESP 19; TEMP 100.2
[2022-11-25] MEDS: SODIUM HYPOCHLORITE 0.125% 473ML SOLUTION TOP SCH ×2 (09:00→17:00)
[2022-11-25] MEDS: MIDODRINE HCL 5MG TABLET PO SCH ×3 (09:00→17:00)
[2022-11-25 10:42] LABS: BG BASE EXCESS 3.5 mmol/L (-2.0-2.0); BG CARBOXYHEMOGLOBIN 0.3 % (0.5-1.5); BG DEOXYHEMOGLOBIN 3.5 % (0.0-5.0); BG FRACTION INSPIRED OXYGEN 21; BG HCO3 ACT 27.4 mmol/L (22.0-26.0); BG METHEMOGLOBIN 0.3 % (0.0-1.5); BG OXYGEN SATURATION 96.5 % (92.0-98.5); BG OXYHEMOGLOBIN 95.9 % (94.0-97.0); BG PCO2 38.9 mmHg (35.0-45.0); BG PH 7.465 (7.350-7.450); BG PO2 89.6 mmHg (75.0-100.0); BG SAMPLE SITE RIGHT BRACHIAL; BG VENT MODE ROOM AIR
[2022-11-25 11:02] LABS: BASOPHILS % 0.6 % (0.0-2.0); EOSINOPHILS % 1.7 % (0.0-5.0); HEMATOCRIT. 30.7 % (36.0-48.0); HEMOGLOBIN. 10.5 g/dL (12.0-16.0); LYMPHOCYTES % 18.7 % (20.0-50.0); MEAN CORPUSCULAR HEMOGLOBIN 28.6 pg (28.0-32.0); MEAN CORPUSCULAR HGB CONC 34.1 g/dL (31.0-37.0); MEAN CORPUSCULAR VOLUME 83.8 fL (81.0-99.0); MEAN PLATELET VOLUME 7.2 fl (7.4-10.4); PLATELET 400 x1000/uL (130-400); RED BLOOD CELL COUNT 3.66 mill/uL (4.2-5.4); RED CELL DISTRIBUTION WIDTH 14.3 % (11.6-14.6); WHITE BLOOD COUNT 7.1 x1000/uL (4.5-11.0)
[2022-11-25 11:14] LABS: CHLORIDE 107 mEq/L (98-107); INDEX HEMOLYSI 1 (1-3); INDEX ICTERIC 1 (1-4); INDEX LIPEMIC 1 (1-3); SODIUM 138 mEq/L (136-145)
[2022-11-25 11:16] LABS: INDEX HEMOLYSI 1 (1-3)
[2022-11-25 11:21] LABS: ALANINE AMINOTRANSFERASE 16 IU/L (13-61); ALBUMIN 2.2 g/dL (3.4-5.0); ASPARTATE AMINOTRANSFERASE 28 IU/L (15-37); BILIRUBIN TOTAL 0.2 mg/dL (0.1-1.0); CALCIUM 9.1 mg/dL (8.5-10.1); CARBON DIOXIDE 29 mEq/L (21-32); CREATININE 0.6 mg/dL (0.6-1.3); GLUCOSE 132 mg/dL (70-105); PROTEIN TOTAL 6.8 g/dL (6.0-8.3); UREA NITROGEN BLOOD 27 mg/dL (7-21)
[2022-11-25 12:00] VITALS: BP 90/60; PULSE 82; RESP 18; TEMP 98.1
[2022-11-25 14:03] LABS: AMMONIA <10 uMol/L (<32)
[2022-11-25 16:00] VITALS: BP 106/59; PULSE 82; RESP 18; TEMP 100.9
[2022-11-25 20:00] VITALS: BP 117/69; PULSE 71; RESP 18; TEMP 97.1
[2022-11-25] MEDS: DONEPEZIL HCL 5MG TABLET PO SCH (20:58)
[2022-11-26] VITALS: BP 121/60; PULSE 79; RESP 16; TEMP 99.7
[2022-11-26 04:00] VITALS: BP 132/80; PULSE 80; RESP 17; TEMP 97.3
[2022-11-26 08:00] VITALS: BP 98/64; PULSE 89; RESP 20; TEMP 96.6
[2022-11-26 08:10] LABS: BASOPHILS % 0.7 % (0.0-2.0); EOSINOPHILS % 1.9 % (0.0-5.0); HEMATOCRIT. 29.2 % (36.0-48.0); HEMOGLOBIN. 10.1 g/dL (12.0-16.0); MEAN CORPUSCULAR HEMOGLOBIN 28.5 pg (28.0-32.0); MEAN CORPUSCULAR HGB CONC 34.4 g/dL (31.0-37.0); MEAN CORPUSCULAR VOLUME 82.9 fL (81.0-99.0); MEAN PLATELET VOLUME 7.3 fl (7.4-10.4); MONOCYTES % 7.7 % (2.0-8.0); NEUTROPHILS % 68.7 % (40.0-76.0); PLATELET 407 x1000/uL (130-400); RED BLOOD CELL COUNT 3.53 mill/uL (4.2-5.4); RED CELL DISTRIBUTION WIDTH 14.4 % (11.6-14.6); WHITE BLOOD COUNT 6.7 x1000/uL (4.5-11.0)
[2022-11-26 08:25] LABS: CHLORIDE 105 mEq/L (98-107); INDEX HEMOLYSI 1 (1-3); INDEX ICTERIC 1 (1-4); INDEX LIPEMIC 1 (1-3); POTASSIUM 4.2 mEq/L (3.5-5.1); SODIUM 137 mEq/L (136-145)
[2022-11-26 08:30] LABS: ALBUMIN 2.2 g/dL (3.4-5.0); CALCIUM 9.1 mg/dL (8.5-10.1); CARBON DIOXIDE 29 mEq/L (21-32); CREATININE 0.6 mg/dL (0.6-1.3); GLUCOSE 96 mg/dL (70-105); UREA NITROGEN BLOOD 28 mg/dL (7-21)
[2022-11-26] MEDS: MIDODRINE HCL 5MG TABLET PO SCH ×2 (09:50→13:23)
[2022-11-26] MEDS: SODIUM HYPOCHLORITE 0.125% 473ML SOLUTION TOP SCH (10:00)
[2022-11-26 12:00] VITALS: BP 92/59; PULSE 90; RESP 20; TEMP 98.1
[2022-11-26 12:59] LABS: PREALBUMIN 19.1 mg/dL (20.0-40.0)
[2022-11-26 16:00] VITALS: BP 103/64; PULSE 81; RESP 20; TEMP 98.1
[2022-11-26 20:00] VITALS: BP 126/77; PULSE 96; RESP 18; TEMP 100.4
[2022-11-26] MEDS: DONEPEZIL HCL 5MG TABLET PO SCH (21:41)
[2022-11-27] VITALS: BP 113/74; PULSE 89; RESP 20; TEMP 97.7
[2022-11-27 04:00] VITALS: BP 89/60; PULSE 76; RESP 20; TEMP 98.6
[2022-11-27 08:00] VITALS: BP 104/65; PULSE 77; RESP 18; TEMP 97.5
[2022-11-27] MEDS: SODIUM HYPOCHLORITE 0.125% 473ML SOLUTION TOP SCH (08:02)
[2022-11-27] MEDS: ENOXAPARIN 40MG/0.4ML SYR SUBCUT SCH (09:00)
[2022-11-27] MEDS: MIDODRINE HCL 5MG TABLET PO SCH ×3 (09:29→17:00)
[2022-11-27 12:00] VITALS: BP 103/57; PULSE 98; RESP 19; TEMP 98.1
[2022-11-27 16:00] VITALS: BP 122/82; PULSE 98; RESP 19; TEMP 98.1
[2022-11-27 20:00] VITALS: BP 96/64; PULSE 94; RESP 19; TEMP 97.7
[2022-11-27] MEDS: DONEPEZIL HCL 5MG TABLET PO SCH (22:14)
[2022-11-28] VITALS: BP 105/64; PULSE 83; RESP 20; TEMP 97.5
[2022-11-28 04:00] VITALS: BP 113/73; PULSE 82; RESP 19; TEMP 98.1
[2022-11-28 08:00] VITALS: BP 112/67; PULSE 77; RESP 18; TEMP 97.1
[2022-11-28] MEDS: ENOXAPARIN 40MG/0.4ML SYR SUBCUT SCH (09:17)
[2022-11-28] MEDS: MIDODRINE HCL 5MG TABLET PO SCH ×3 (09:17→17:50)
[2022-11-28 12:00] VITALS: BP 102/63; PULSE 94; RESP 18; TEMP 97.7
[2022-11-28 16:00] VITALS: BP 101/65; PULSE 99; RESP 18; TEMP 97.5
[2022-11-28 20:00] VITALS: BP 101/58; PULSE 58; RESP 20; TEMP 97.8
[2022-11-28] MEDS: DONEPEZIL HCL 5MG TABLET PO SCH (20:35)
[2022-11-29] VITALS (7 sets, daily range): BP systolic 89–116; BP diastolic 46–72; PULSE 62–119; RESP 19–20; TEMP 97.5–98.8
[2022-11-29] MEDS: ENOXAPARIN 40MG/0.4ML SYR SUBCUT SCH (08:05)
[2022-11-29] MEDS: MIDODRINE HCL 5MG TABLET PO SCH ×3 (08:06→16:17)
[2022-11-29] MEDS: ACETAMINOPHEN 325MG TABLET PO PRN (17:41)
[2022-11-29] MEDS ORDERED: LEVOFLOXACIN 500MG PREMIX 100 ML IV SCH (18:00)
[2022-11-29] MEDS ORDERED: VANCOMYCIN 1G PREMIX 200 ML IV NR (18:00)
[2022-11-29] MEDS: SODIUM CHLORIDE 0.9% 250 ML IV NR ×2 (18:44→18:47)
[2022-11-29 19:39] LABS: CLARITY URINE CLEAR (CLEAR); COLOR URINE YELLOW (YELLOW); GLUCOSE URINE NEGATIVE (NEGATIVE); KETONES URINE NEGATIVE (NEGATIVE); LEUKOCYTE ESTERASE URINE 1+ (NEGATIVE); NITRITE URINE NEGATIVE (NEGATIVE); OCCULT BLOOD URINE TRACE (NEGATIVE); PH URINE 5.5 (4.5-8.0); PROTEIN URINE 1+ (NEGATIVE); SPECIFIC GRAVITY URINE 1.025 (1.005-1.030); UROBILINOGEN URINE 0.2 E.U./dL (0.2-1.0)
[2022-11-29 20:02] LABS: BACTERIA URINE 1+; RBC URINE 0-2 /hpf (0-2); SQUAMOUS EPITHELIAL CELL URINE FEW /lpf (RARE/1+)
[2022-11-29] MEDS: DONEPEZIL HCL 5MG TABLET PO SCH (21:08)
[2022-11-29] MEDS ORDERED: SODIUM CHLORIDE 0.9% 250 ML IV SCH (22:15)
[2022-11-30] VITALS: BP 91/53; PULSE 96; RESP 19; TEMP 100.8
[2022-11-30] MEDS: ACETAMINOPHEN 325MG TABLET PO PRN (03:45)
[2022-11-30 08:00] VITALS: BP 95/58; PULSE 90; RESP 18; TEMP 97.7
[2022-11-30] MEDS: MIDODRINE HCL 5MG TABLET PO SCH ×2 (09:21→14:20)
[2022-11-30] MEDS: ENOXAPARIN 40MG/0.4ML SYR SUBCUT SCH (09:21)
[2022-11-30 12:00] VITALS: BP 93/52; PULSE 104; RESP 18; TEMP 98.6
[2022-11-30 13:18] VITALS: PULSE 104; RESP 18; TEMP 98.6
[2022-11-30 15:09] VITALS: BP 93/52; PULSE 104; TEMP 98.6; O2SAT 96
[2022-11-30 16:00] VITALS: BP 99/47; PULSE 98; RESP 18; TEMP 98.9
== END 2022-11-30 18:37 | DRG 853 ==
LOC: ER 22:49 → 7WST 10-28 05:49 → MICUSO 11-09 10:07 → 7WST 11-09 16:14 → 6WST 11-13 21:46 → 6EST 11-23 16:23 → 7WST 11-29 17:47
PROVIDERS: ADMIT Family Medicine Adult Medicine; ATTEND Family Medicine Adult Medicine
PROC: 0KBN0ZZ Excision of Right Hip Muscle, Open Approach (ICD-10-PCS; 2022-10-30)
PROC: 0KBP0ZZ Excision of Left Hip Muscle, Open Approach (ICD-10-PCS; principal; 2022-11-19)
PROC: 0KBN0ZZ Excision of Right Hip Muscle, Open Approach (ICD-10-PCS; 2022-11-19)
DX: A41.89 Other specified sepsis (principal); G92.8 Other toxic encephalopathy; L89.214 Pressure ulcer of right hip, stage 4; E44.0 Moderate protein-calorie malnutrition; I50.22 Chronic systolic (congestive) heart failure; N39.0 Urinary tract infection, site not specified; R65.20 Severe sepsis without septic shock; I11.0 Hypertensive heart disease with heart failure; D64.9 Anemia, unspecified; B96.89 Other specified bacterial agents as the cause of diseases classified elsewhere; I44.7 Left bundle-branch block, unspecified; R77.8 Other specified abnormalities of plasma proteins; R80.9 Proteinuria, unspecified; L89.150 Pressure ulcer of sacral region, unstageable; R74.01 Elevation of levels of liver transaminase levels; B95.8 Unspecified staphylococcus as the cause of diseases classified elsewhere; Z68.20 Body mass index [BMI] 20.0-20.9, adult; F03.90 Unspecified dementia, unspecified severity, without behavioral disturbance, psychotic disturbance, mood disturbance, and anxiety; K59.00 Constipation, unspecified; Z20.822 Contact with and (suspected) exposure to COVID-19; B96.4 Proteus (mirabilis) (morganii) as the cause of diseases classified elsewhere; Z74.01 Bed confinement status
CPT/HCPCS: 36415; 36600; 70551; 71045; 72195; 80048; 80053; 80061; 80076; 80202; 80305; 81003; 82040; 82140; 82375; 82607; 82805; 82962; 83605; 83615; 83735; 83880; 84100; 84134; 84145; 84443; 84484; 85025; 85027; 86850; 86900; 87070; 87077; 87186; 87426; 93005; 93306; 97110; 97162; 97166; 97530; 97535; 99291; J0456; J0696; J1650; J1956; J3370; J3490; J7030; J7042; J7060; A4315

== ENCOUNTER 2025-03-16 02:31 | Inpatient (IN) | payer OTHER, MEDICAID, MEDICARE ==
[~2025-03-16] VITALS: Ht 152.4 cm; Wt 62.6 kg
[2025-03-16] VITALS (52 sets, daily range): BP systolic 52–159; BP diastolic 23–81; PULSE 68–149; RESP 18–40; TEMP 37.3–39.4; O2SAT 92–100
[~2025-03-16 02:31] MED LIST: CHOL400D7 PO; DONE10TA43 MT
[2025-03-16] MEDS: SODIUM CHLORIDE 0.9% (SEPSIS BOLUS) IV ONE (03:16)
[2025-03-16] MEDS: PIPERACILLIN/TAZO 3.375G/50ML 50 ML IV ONE (03:17)
[2025-03-16 03:43] LABS: HEMATOCRIT. 26.4 % (36.0-48.0); HEMOGLOBIN. 8.5 g/dL (12.0-16.0); MEAN PLATELET VOLUME 8.8 fl (7.4-10.4); PLATELET 263 x1000/uL (130-400); RED BLOOD CELL COUNT 3.27 mill/uL (4.2-5.4); RED CELL DISTRIBUTION WIDTH 17.1 % (11.6-14.6)
[2025-03-16 03:52] LABS: INR 1.1
[2025-03-16] MEDS: VANCOMYCIN 1G PREMIX 200 ML IV ONE (03:53)
[2025-03-16 04:00] LABS: CREATININE 1.3 mg/dL (0.6-1.0)
[2025-03-16 04:01] LABS: PROTEIN TOTAL 6.7 g/dL (6.0-8.3); UREA NITROGEN BLOOD 61 mg/dL (9-23)
[2025-03-16 04:03] LABS: ASPARTATE AMINOTRANSFERASE 25 IU/L (<34); BILIRUBIN DIRECT < 0.1 mg/dL (<=3.0); BILIRUBIN TOTAL 0.2 mg/dL (0.1-1.0)
[2025-03-16 04:32] LABS: BG BASE EXCESS -3.7 mmol/L (-2.0-3.0); BG CARBOXYHEMOGLOBIN 0.6 % (0.5-1.5); BG DEOXYHEMOGLOBIN 2.2 % (0.0-5.0); BG FLOW(L/min) 3.00 L/min; BG HCO3 ACT 19.0 mmol/L (21.0-28.0); BG METHEMOGLOBIN 0.3 % (0.5-1.5); BG OXYGEN SATURATION 97.8 % (94.0-98.0); BG OXYHEMOGLOBIN 96.9 % (94.0-98.0); BG PCO2 26.6 mmHg (32.0-45.0); BG PH 7.471 (7.350-7.450); BG PO2 99.7 mmHg (83.0-108.0); BG SAMPLE SITE LEFT RADIAL; BG TOTAL HEMOGLOBIN 9.5 g/dL (12.0-16.0)
[2025-03-16] MEDS ORDERED: MEROPENEM 1,000 MG in SODIUM CHLORIDE 0.9% 100 ML IV SCH (04:45)
[2025-03-16 04:47] LABS: TROPONIN I HIGH SENSITIVITY 84 ng/L (3.0-34)
[2025-03-16] MEDS: MEROPENEM 1G/100ML IV NR (05:58)
[2025-03-16] MEDS: SODIUM CHLORIDE 0.9% 1,000 ML IV ONE (05:58)
[2025-03-16] MEDS ORDERED: GUAIFENESIN 200MG/10ML SUGAR FREE UDC PO PRN (06:00)
[2025-03-16] MEDS ORDERED: CLONIDINE 0.1MG TABLET PO PRN (06:00)
[2025-03-16] MEDS ORDERED: DOCUSATE SODIUM 100MG CAPSULE PO PRN (06:00)
[2025-03-16] MEDS ORDERED: ACETAMINOPHEN 325MG TABLET PO PRN (06:00)
[2025-03-16] MEDS ORDERED: IPRATROPIUM/ALBUTEROL 0.5-3(2.5)MG/3ML NEB HHN PRN (06:00)
[2025-03-16] MEDS ORDERED: ONDANSETRON HCL 4MG/2ML INJ IV PRN (06:00)
[2025-03-16] MEDS: NOREPINEPHRINE 8MG/250ML PMX 250 ML IV PRN (06:20)
[2025-03-16] MEDS: DEXT 5%/0.45% NACL 1000ML 1,000 ML IV SCH (07:18)
[2025-03-16] MEDS: IOHEXOL-350 50 ML BOTTLE ONE (07:18)
[2025-03-16 07:33] LABS: INFLUENZA TYPE A Presumptive Negative (Pres. Neg.)
[2025-03-16 07:35] LABS: INFLUENZA TYPE B Presumptive Negative (Pres. Neg.)
[2025-03-16 07:36] LABS: RESPIRATORY SYNCYTIAL VIRUS Not Detected (Not Detectd)
[2025-03-16 08:03] LABS: PHOSPHORUS 2.2 mg/dL (2.5-4.9)
[2025-03-16 08:08] LABS: FOLIC ACID (FOLATE) SERUM 18.76 ng/mL (>5.38); VITAMIN B12 SERUM 580 pg/mL (211-911)
[2025-03-16 08:12] LABS: TROPONIN I HIGH SENSITIVITY 92 ng/L (3.0-34)
[2025-03-16 08:21] LABS: COLOR URINE BLOODY (YELLOW)
[2025-03-16 08:22] LABS: CLARITY URINE TURBID (CLEAR); GLUCOSE URINE NEGATIVE (NEGATIVE); KETONES URINE NEGATIVE (NEGATIVE); LEUKOCYTE ESTERASE URINE 2+ (NEGATIVE); NITRITE URINE NEGATIVE (NEGATIVE); OCCULT BLOOD URINE 3+ (NEGATIVE); PH URINE 7.0 (4.5-8.0); PROTEIN URINE 2+ (NEGATIVE); SPECIFIC GRAVITY URINE 1.010 (1.005-1.030); UROBILINOGEN URINE 0.2 E.U./dL (0.2-1.0)
[2025-03-16 08:25] LABS: BACTERIA URINE 1+; RBC URINE TNTC /hpf (0-2); SQUAMOUS EPITHELIAL CELL URINE 1+ /lpf (RARE/1+); WBC URINE 15-25 /hpf (0-2); YEAST URINE NONE SEEN
[2025-03-16 08:27] LABS: *AMPHETAMINES SCREEN URINE NEGATIVE (NEGATIVE); *BARBITURATES SCREEN URINE NEGATIVE (NEGATIVE); *BENZODIAZEPINES SCREEN URINE NEGATIVE (NEGATIVE); *COCAINE SCREEN URINE NEGATIVE (NEGATIVE); CANNABINOID URINE SCREEN NEGATIVE (NEGATIVE); METHADONE URINE SCREEN NEGATIVE (NEGATIVE); OPIATES URINE SCREEN NEGATIVE (NEGATIVE); PHENCYCLIDINE URINE SCREEN NEGATIVE (NEGATIVE)
[2025-03-16 08:28] LABS: ECSTASY MDMA SCREEN URINE NEGATIVE (NEGATIVE)
[2025-03-16] MEDS ORDERED: LIDOCAINE HCL 1% 10 MG/ML 10ML VIAL ONE (08:51)
[2025-03-16] MEDS ORDERED: PHENYLEPHRINE 50 MG in DEXT 5% WATER 245 ML IV PRN (09:00)
[2025-03-16] MEDS: ENOXAPARIN 40MG/0.4ML SYR SUBCUT SCH (09:00)
[2025-03-16] MEDS: DEXTROSE 50% WATER 50ML SYRINGE IV SCH (09:34)
[2025-03-16] MEDS: INSULIN REGULAR (HUMULIN R) 1000UNITS/10ML VIAL IV SCH (09:35)
[2025-03-16] MEDS: ACETAMINOPHEN 325MG TABLET PO PRN (11:35)
[2025-03-16 11:48] LABS: BAND% 11.0 % (1.0-6.0); BASOPHILS % MANUAL 1.0 % (0.0-2.0); LYMPHOCYTES % MANUAL 2.0 % (20.0-60.0); METAMYELOCYTES % 1.0 % (0-0); MONOCYTES % MANUAL 3.0 % (2.0-8.0); NEUTROPHILS % MANUAL 82.0 % (45.0-75.0)
[2025-03-16 11:49] LABS: PLATELET ESTIMATE NORMAL
[2025-03-16] MEDS ORDERED: MEROPENEM 1G/100ML 100 ML IV SCH (14:00)
[2025-03-16] MEDS ORDERED: PHENYLEPHRINE 50MG/250ML PMX 250 ML IV PRN (14:45)
[2025-03-16] MEDS: PHENYLEPHRINE 50 MG in DEXTROSE 5% WATER 250 ML IV PRN (15:47)
[2025-03-16] MEDS ORDERED: LACTATED RINGERS 1,000 ML IV NR ×2 (17:30)
[2025-03-16] MEDS: MEROPENEM 1G/100ML 100 ML IV SCH (17:39)
[2025-03-17] VITALS (82 sets, daily range): BP systolic 91–148; BP diastolic 48–81; PULSE 58–91; RESP 7–27; TEMP 36.2–37; O2SAT 100
[2025-03-17 07:22] LABS: TRIGLYCERIDE 114 mg/dL (0-150); UREA NITROGEN BLOOD 43 mg/dL (9-23)
[2025-03-17 07:23] LABS: LDL CHOLESTEROL 22 mg/dL (5-100)
[2025-03-17 07:25] LABS: T4 FREE 1.68 ng/dL (0.89-1.76)
[2025-03-17 07:27] LABS: HEMATOCRIT. 23.0 % (36.0-48.0); HEMOGLOBIN. 7.6 g/dL (12.0-16.0); MEAN PLATELET VOLUME 9.1 fl (7.4-10.4); PLATELET 207 x1000/uL (130-400); RED BLOOD CELL COUNT 2.99 mill/uL (4.2-5.4); RED CELL DISTRIBUTION WIDTH 16.5 % (11.6-14.6)
[2025-03-17 08:39] LABS: CREATININE 0.7 mg/dL (0.6-1.0)
[2025-03-17 09:15] LABS: TROPONIN I HIGH SENSITIVITY 328 ng/L (3.0-34)
[2025-03-17] MEDS: KCL 20MEQ/100ML PREMIX 100 ML IV ONE (09:31)
[2025-03-17] MEDS: LACTATED RINGERS 1,000 ML IV ONE (11:31)
[2025-03-17] MEDS: MIDODRINE HCL 5MG TABLET PO SCH (12:23)
[2025-03-17] MEDS ORDERED: MIDODRINE HCL 5MG TABLET PO SCH (13:00)
[2025-03-17 13:32] LABS: BAND% 28.0 % (1.0-6.0); LYMPHOCYTES % MANUAL 2.0 % (20.0-60.0); METAMYELOCYTES % 2.0 % (0-0); MONOCYTES % MANUAL 2.0 % (2.0-8.0); NEUTROPHILS % MANUAL 66.0 % (45.0-75.0); PLATELET ESTIMATE NORMAL
[2025-03-17] MEDS: DEXT 5%/LACTATED RINGERS 1,000 ML IV SCH (15:28)
[2025-03-17] MEDS: ALBUMIN HUMAN 12.5G/250ML (5%) IV SCH (15:28)
== END 2025-03-17 19:29 | disposition short-term general hospital (02) | DRG 871 ==
LOC: ER 02:31 → 5EST 04:44 → EDBEDREQTM 05:17 → EDBEDREQ 05:17 → CANRESERV 05:49 → ENRESERV 05:49 → EDBEDREQSVC 06:40
PROVIDERS: ADMIT Hospitalist; ATTEND Hospitalist
PROC: 0T9130Z Drainage of Left Kidney with Drainage Device, Percutaneous Approach (ICD-10-PCS; principal; 2025-03-16)
PROC: 02HV33Z Insertion of Infusion Device into Superior Vena Cava, Percutaneous Approach (ICD-10-PCS; 2025-03-16)
PROC: B548ZZA Ultrasonography of Superior Vena Cava, Guidance (ICD-10-PCS; 2025-03-16)
DX: A41.51 Sepsis due to Escherichia coli [E. coli] (principal); I21.A1 Myocardial infarction type 2; J18.9 Pneumonia, unspecified organism; J96.01 Acute respiratory failure with hypoxia; R65.21 Severe sepsis with septic shock; E87.20 Acidosis, unspecified; N13.6 Pyonephrosis; N17.9 Acute kidney failure, unspecified; I11.0 Hypertensive heart disease with heart failure; D50.9 Iron deficiency anemia, unspecified; I50.22 Chronic systolic (congestive) heart failure; E87.1 Hypo-osmolality and hyponatremia; N20.2 Calculus of kidney with calculus of ureter; Z20.822 Contact with and (suspected) exposure to COVID-19; E87.5 Hyperkalemia; R62.7 Adult failure to thrive; R73.9 Hyperglycemia, unspecified; N28.1 Cyst of kidney, acquired; Z68.27 Body mass index [BMI] 27.0-27.9, adult; Z74.01 Bed confinement status; Z79.899 Other long term (current) drug therapy
CPT/HCPCS: 36415; 36600; 50432; 71045; 71275; 74177; 80048; 80061; 80076; 80305; 81003; 82375; 82607; 82728; 82746; 82805; 82962; 83540; 83550; 83605; 83735; 83880; 84100; 84145; 84439; 84443; 84484; 85025; 87077; 87186; 87420; 87426; 87804; 93005; 99285; A4606; J1650; J1815; J2003; J2185; J2371; J2543; J3373; J3480; J3490; J7030; J7060; P9041; Q9967